=== PATIENT | female | born 1960 | race Caucasian/White ===

== ENCOUNTER 2020-01-19 00:14 | Emergency (ER) | payer OTHER, SELFPAY ==
--- NOTE | ~2020-01-19 | XR_ITS ---
EXAMINATION: XR chest 2V DATE: 01/19/2020 00:51 INDICATION: Chest pain TECHNIQUE: PA and lateral views of the chest were obtained. COMPARISON: None FINDINGS: The lungs are clear with no focal airspace opacities, pulmonary edema, pleural effusion or pneumothor ax. The cardiomediastinal silhouette is normal. Midthoracic dextroscoliosis with moderate spondylosis . IMPRESSION: 1. No acute cardiopulmonary disease. Reviewed, dictated and finalized at location A. L [facility]
[2020-01-19 00:17] VITALS: BP 131/86; PULSE 96; RESP 16; TEMP 36.5; O2SAT 99
--- NOTE | 2020-01-19 00:36 | ED_ITS ---
I attest that this documentation has been prepared under the direction and in the presence of Juan José Ramirez MD. Anil Yates Scribe 01/19/20;00:36 HPI - URI/Sore Throat General Chief Complaint: Upper Respiratory Infection Stated Complaint: lung pain Time Seen by Provider: 01/19/20 00:31 Related Data Allergies Allergy/AdvReac Type Severity Reaction Status Date / Time Penicillins Allergy Unknown Verified 12/22/10 16:33 [facility] Family History Family History (Updated 06/29/16 @ 23:19 by DOCTOR UNKNOWN) Mother Hypertension Sibling Family history of malignant neoplasm of breast in first degree relative Social History Social History Alcohol intake: never Course Vital Signs Vital signs: Vital Signs Temperature 36.5 C 01/19/20 00:17 Pulse Rate 96 01/19/20 00:17 Respiratory Rate 16 01/19/20 00:17 Blood Pressure 131/86 01/19/20 00:17 Pulse Oximetry 99 01/19/20 00:17 Temperature 36.5 C 01/19/20 00:17 Pulse Rate 96 01/19/20 00:17 Respiratory Rate 16 01/19/20 00:17 Blood Pressure 131/86 01/19/20 00:17 Pulse Oximetry 99 01/19/20 00:17
[2020-01-19 00:44] VITALS: BP 129/88; PULSE 85; RESP 18; TEMP 36.8; O2SAT 100
--- NOTE | 2020-01-19 00:44 | ED.BACK ---
HPI - Back Pain/Injury General Chief Complaint: Upper Respiratory Infection Stated Complaint: lung pain Time Seen by Provider: 01/19/20 00:31 Source: patient and RN notes reviewed Mode of arrival: ambulatory Limitations: no limitations History of Present Illness HPI Narrative: Pt is a 59 y/o female who presents to the ED with c/o rt upper back pain starting several weeks ago. She notes that she has a Hx of lung infection, and states that she believes she is currently having an infection in her rt lung. Pt notes that she has been doing a lot more physical labor recently. She states that she was seen at an urgent care facility last week for her symptoms, and states that she was advised to be seen in the ED. She notes that she didn't have time to go to the hospital that night. Pt states that she was later prescribed a course of Augmentin, which she is currently on her third day of. She describes her pain as stabbing, and notes that it feels like her rt lung is hardening. Pt states that her pain also feels similar to a pulled muscle. She reports a cough accompanying her pain, but denies any other symptoms. MD elicited complaint: back pain Onset (ago): week(s) (several) Quality: stabbing Location: right upper back Associated symptoms: other (cough) Treatments prior to arrival: other (Augmentin) Related Data Allergies Allergy/AdvReac Type Severity Reaction Status Date / Time Penicillins Allergy Unknown Verified 12/22/10 16:33 Review of Systems Review of Systems: All systems reviewed & are unremarkable except as noted in HPI and below Respiratory: Respiratory: Reports cough Musculoskeletal: Musculoskeletal: Reports back pain (rt upper back pain) [facility] Past Medical History Medical History Anxiety Depression Migraines Mitral valve prolapse Panic disorder Right arm fracture Surgical History Surgical History No significant past surgical history Family History Family History (Updated 06/29/16 @ 23:19 by DOCTOR UNKNOWN) Mother Hypertension Sibling Family history of malignant neoplasm of breast in first degree relative Social History Social History Smoking packs per day: 1.5 Smoking cigarettes per day: 30.0 Smoking status: Current every day smoker Alcohol intake: never Gender identity (if verbalized by the patient): Female Comments PCP is Dr. Lerner. Course Vital Signs Vital signs: Vital Signs Temperature 36.5 C 01/19/20 00:17 Pulse Rate 96 01/19/20 00:17 Respiratory Rate 16 01/19/20 00:17 Blood Pressure 131/86 01/19/20 00:17 Pulse Oximetry 99 01/19/20 00:17 Temperature 36.8 C 01/19/20 02:45 Pulse Rate 80 01/19/20 02:45 Respiratory Rate 18 01/19/20 02:45 Blood Pressure 154/85 H 01/19/20 02:45 Pulse Oximetry 100 01/19/20 02:45 MDM - Back Pain/Injury Differential Diagnosis Differential diagnosis: Likely thoracic back pain and other (pneumonia) Medical Records Attestation: I reviewed the patient's medical records. Lab Data Attestation: I reviewed the patient's lab results. Imaging Data Attestation: I personally reviewed and interpreted this imaging study as follows: My impression: Negative chest x-ray Discharge Plan Discharge Clinical Impression: Upper back pain Patient Disposition: Home, Self-Care Condition: Stable Instructions: Back Pain (ED) Prescriptions: New cyclobenzaprine 10 mg tablet 10 mg PO TID PRN (Reason: muscle spasm) Qty: 20 RF: 0 Follow-up/Referrals: Errol Lerner MD [Primary Care Provider] - Discharge Date/Time: 01/19/20 02:30
[2020-01-19 01:34] VITALS: O2SAT 100
[2020-01-19 02:45] VITALS: BP 154/85; PULSE 80; RESP 18; TEMP 36.8; O2SAT 100
== END 2020-01-19 02:30 | disposition home or self-care (01) ==
PROVIDERS: Emergency Provider Emergency Medicine; PCP Internal Medicine
DX: M54.9 Dorsalgia, unspecified (principal); F41.9 Anxiety disorder, unspecified; F32.9 Major depressive disorder, single episode, unspecified
CPT/HCPCS: 71046; 99283

== ENCOUNTER 2021-09-06 12:26 | Emergency (ER) | payer OTHER, SELFPAY ==
[2021-09-06 12:35] VITALS: BP 144/90; PULSE 71; RESP 16; TEMP 36; O2SAT 100
--- NOTE | 2021-09-06 14:07 | ED_ITS ---
HPI - URI/Sore Throat General Chief Complaint: Upper Respiratory Infection Stated Complaint: jordy feeling well Time Seen by Provider: 09/06/21 14:03 Source: patient Mode of arrival: ambulatory Limitations: no limitations Related Data Allergies Allergy/AdvReac Type Severity Reaction Status Date / Time Penicillins Allergy Mild Hives Verified 09/06/21 13:15 [facility] Past Medical History Medical History (Updated 09/06/21 @ 14:13 by POORNIMA Root) Anxiety Depression Migraines Mitral valve prolapse Panic disorder Right arm fracture Surgical History Surgical History No significant past surgical history Family History Family History (Updated 06/29/16 @ 23:19 by DOCTOR UNKNOWN) Mother Hypertension Sibling Family history of malignant neoplasm of breast in first degree relative Social History Social History Smoking packs per day: 1.5 Smoking cigarettes per day: 30.0 Smoking status: Current every day smoker Alcohol intake: never Gender identity (if verbalized by the patient): Female Course Vital Signs Vital signs: Vital Signs Temperature 36.0 C L 09/06/21 12:35 Pulse Rate 71 09/06/21 12:35 Respiratory Rate 16 09/06/21 12:35 Blood Pressure 144/90 H 09/06/21 12:35 Pulse Oximetry 100 09/06/21 12:35 Temperature 36.0 C L 09/06/21 12:35 Pulse Rate 71 09/06/21 12:35 Respiratory Rate 16 09/06/21 12:35 Blood Pressure 144/90 H 09/06/21 12:35 Pulse Oximetry 100 09/06/21 12:35 MDM - URI/Sore Throat Lab Data Labs: Lab Results 09/06/21 Range/Units 13:00 POC SARS CoV-2 Ag Negative (Negative) Strep Screen Presumptive Negative *(Reference Range: Negative)* Strep Screen Presumptive Negative *(Reference Range: Negative)* Strep Screen Presumptive Negative *(Reference Range: Negative)* Discharge Plan Discharge Clinical Impression: Sinusitis Patient Disposition: Home, Self-Care Condition: Stable Instructions: Antibiotic Form, Sinusitis (ED) Additional Instructions: Take antibiotics as directed. A list of follow-up care has also been provided. You may take Tylenol or ibuprofen for pain. If you develop chest pain, cough, shortness of breath or fever, please go to the emergency department for further evaluation. Prescriptions: New doxycycline monohydrate 100 mg capsule 100 mg PO BID 5 Days Qty: 10 RF: 0 Follow-up/Referrals: UNKNOWN,DOCTOR [Primary Care Provider] - Time of Disposition: 14:13
--- NOTE | 2021-09-06 14:14 | ED.URI ---
HPI - URI/Sore Throat General Chief Complaint: Upper Respiratory Infection Stated Complaint: jordy feeling well Time Seen by Provider: 09/06/21 14:03 Source: patient Mode of arrival: ambulatory Limitations: no limitations History of Present Illness HPI Narrative: Patient is a 60-year-old female who presents with multiple complaints. Patient reports with sinus type symptoms x 10 days. Patient reports taking amoxicillin of her mother's but possibly developed a rash. Patient reports that she is allergic to penicillin but took the amoxicillin anyway. Patient then reports that she is having many problems, that she has been talking non stop for a week. Patient asking for referrals for PCP and psychiatrist. Related Data Allergies Allergy/AdvReac Type Severity Reaction Status Date / Time Penicillins Allergy Mild Hives Verified 09/06/21 13:15 Review of Systems Review of Systems: CONSTITUTIONAL: Denies fever, chills, or sweats. EYES: Denies visual changes, redness, or discharge. ENT: Denies rhinorrhea, reports congestion, facial pressure and headache CARDIOVASCULAR: Denies chest pain, palpitations, or edema. RESPIRATORY: Denies cough or dyspnea. GASTROINTESTINAL: Denies abdominal pain, nausea, vomiting, or diarrhea. GENITOURINARY: Denies dysuria or hematuria. SKIN: Denies rash or itching. MUSCULOSKELETAL: Denies back pain, joint pain, or myalgia. NEUROLOGIC: Denies headache, numbness, dizziness, or weakness. PSYCHIATRIC: Denies anxiety or depression. [facility] Past Medical History Medical History Anxiety Depression Migraines Mitral valve prolapse Panic disorder Right arm fracture Surgical History Surgical History No significant past surgical history Family History Family History Mother Hypertension Sibling Family history of malignant neoplasm of breast in first degree relative Social History Social History Smoking packs per day: 1.5 Smoking cigarettes per day: 30.0 Smoking status: Current every day smoker Alcohol intake: never Gender identity (if verbalized by the patient): Female Comments At the time of signature, I have reviewed and agree with nursing past medical, surgical, social, and family history unless otherwise noted. Please see nursing chart for further information. There is no relevant family history pertinent to the presenting complaint. Exam Narrative: GENERAL: Well-appearing, well-nourished, and in no acute distress. HEAD: Normocephalic, atraumatic. EYES: EOMI. No redness or drainage. Conjunctiva are normal. ENT: Mucous membranes pink and moist. Nares clear. No rhinorrhea. TMs normal bilaterally. Throat normal. Uvula midline. Maxillary and frontal sinus tenderness with palpation. Multiple dental caries, fractures and missing teeth. NECK: AROM. Supple. No lymphadenopathy. CHEST: No respiratory distress. HEART: Regular rate and rhythm. EXTREMITIES: Normal range of motion. No edema. SKIN: Warm, dry, no rash. NEURO: No focal deficits. Alert and oriented x3. Gait steady. PSYCH: Normal affect. No signs of depression or anxiety. Course Vital Signs Vital signs: Vital Signs Temperature 36.0 C L 09/06/21 12:35 Pulse Rate 71 09/06/21 12:35 Respiratory Rate 16 09/06/21 12:35 Blood Pressure 144/90 H 09/06/21 12:35 Pulse Oximetry 100 09/06/21 12:35 Temperature 36.0 C L 09/06/21 12:35 Pulse Rate 71 09/06/21 12:35 Respiratory Rate 16 09/06/21 12:35 Blood Pressure 144/90 H 09/06/21 12:35 Pulse Oximetry 100 09/06/21 12:35 Reviewed MDM - URI/Sore Throat MDM Narrative Medical decision making narrative: Patient to be started on doxycycline at this time for sinusitis. Discussed with patient referral for PCP, dentist and for psychiatrist. During
== END 2021-09-06 14:25 | disposition home or self-care (01) ==
PROVIDERS: Emergency Medicine; Emergency Provider Nurse Practitioner
DX: J32.0 Chronic maxillary sinusitis (principal); I34.1 Nonrheumatic mitral (valve) prolapse; F17.210 Nicotine dependence, cigarettes, uncomplicated; Z20.822 Contact with and (suspected) exposure to COVID-19
CPT/HCPCS: 87081; 87426; 87880; 99213; C9803; G0463

== ENCOUNTER 2024-02-21 18:17 | Emergency (ER) | payer OTHER, SELFPAY ==
[2024-02-21 18:43] VITALS: BP 132/78; PULSE 93; RESP 16; TEMP 37.3; O2SAT 99
--- NOTE | 2024-02-21 19:22 | ED.FEMALEGU ---
HPI - Female Genitourinary General Chief complaint: Urogenital-Female Stated complaint: urinary symptoms Time Seen by Provider: 02/21/24 18:52 Source: patient and RN notes reviewed Mode of arrival: ambulatory Limitations: no limitations History of Present Illness HPI Narrative: Patient presents today complaining of dysuria, hematuria, and not fully emptying her bladder x2 days. Denies frequency or abdominal pain. She has tried some azo with little relief, but was not taking the proper dosage. Related Data Allergies Allergy/AdvReac Type Severity Reaction Status Date / Time Penicillins Allergy Mild Hives Verified 02/21/24 18:25 Review of Systems Review of Systems: CONSTITUTIONAL: Denies body aches, fever, chills, or sweats. EYES: Denies visual changes, redness, or discharge. ENT: Denies rhinorrhea, congestion, sore throat, or otalgia. CARDIOVASCULAR: Denies chest pain, palpitations, or edema. RESPIRATORY: Denies cough or dyspnea. GASTROINTESTINAL: Denies abdominal pain, nausea, vomiting, or diarrhea. GENITOURINARY: + dysuria, hematuria SKIN: Denies rash, itching, or wounds. MUSCULOSKELETAL: Denies back pain, joint pain, or myalgia. NEUROLOGIC: Denies headache, numbness, tingling, or weakness. PSYCH: Denies depression or anxiety. [facility] Past Medical History Medical History Anxiety Depression Migraines Mitral valve prolapse Panic disorder Right arm fracture Surgical History Surgical History No significant past surgical history Family History Family History Mother Hypertension Sibling Family history of malignant neoplasm of breast in first degree relative Social History Social History Smoking packs per day: 1.5 Smoking cigarettes per day: 30.0 Smoking status: Current every day smoker Alcohol intake: never Gender identity (if verbalized by the patient): Female Comments At time of signature, I have reviewed and agree with nursing past medical, surgical, social and family history unless otherwise noted. Please see nursing chart for further information. There is no relevant family history pertinent to the presenting complaint Exam Narrative: GENERAL: Well-appearing, well-nourished, and in no acute distress. HEAD: Normocephalic, atraumatic. EYES: EOMI. No redness or drainage. Conjunctivae normal. ENT: Mucous membranes pink and moist. NECK: Normal AROM. Supple. No lymphadenopathy. CHEST: No respiratory distress. Clear to auscultation. HEART: Regular rate and rhythm. No murmur appreciated. ABDOMEN: Soft, nontender, nondistended, normal active bowel sounds. MUSCULOSKELETAL: No bony tenderness. EXTREMITIES: Normal range of motion. No edema. SKIN: Warm, dry, no rash. Capillary refill normal. Normal skin turgor. NEURO: No focal deficits. Alert and oriented x3. Gait steady. PSYCH: Flight of ideas, but redirectable Course Course Level of Care: Express Care Visit Vital Signs Vital signs: Vital Signs Temperature 99.2 F 02/21/24 18:43 Pulse Rate 93 02/21/24 18:43 Respiratory Rate 16 02/21/24 18:43 Blood Pressure 132/78 02/21/24 18:43 Pulse Oximetry 99 02/21/24 18:43 Oxygen Delivery Room Air 02/21/24 18:43 Temperature 99.2 F 02/21/24 18:43 Pulse Rate 93 02/21/24 18:43 Respiratory Rate 16 02/21/24 18:43 Blood Pressure 132/78 02/21/24 18:43 Pulse Oximetry 99 02/21/24 18:43 Oxygen Delivery Room Air 02/21/24 18:43 Reviewed MDM - Female Genitourinary MDM Narrative Medical decision making narrative: Urinalysis is consistent with UTI. Prescription for Keflex sent to pharmacy. Anticipatory guidance given. Patient requesting information for psychiatry. Referrals given. Differential Diagnosis Differe
== END 2024-02-21 19:23 | disposition home or self-care (01) ==
PROVIDERS: Emergency Provider Nurse Practitioner
DX: N39.0 Urinary tract infection, site not specified (principal); B96.20 Unspecified Escherichia coli [E. coli] as the cause of diseases classified elsewhere; F17.210 Nicotine dependence, cigarettes, uncomplicated; I34.1 Nonrheumatic mitral (valve) prolapse
CPT/HCPCS: 81003; 87077; 87086; 87088; 87186; 99213; G0463

== ENCOUNTER 2025-09-02 18:10 | Emergency (ER) | payer OTHER, SELFPAY ==
[2025-09-02 18:15] VITALS: BP 148/97; PULSE 109; RESP 16; TEMP 36.5; O2SAT 96
--- NOTE | 2025-09-02 18:18 | ED_ITS ---
HPI - Female Genitourinary General Chief complaint: Urogenital-Female Stated complaint: urinary irritation Patient presents to the [facility] with complaints of burning with urination, back pain and bladder pressure that began about 5 days ago. Patient reports symptoms worsened today the patient did take azo [id number] urinar y tract pain relief with some relief of the burning. No history of frequent urinary tract infections. Denies fever, chills, body aches, significant abdominal pain blood nausea, diarrhea. Related Data Home Medications ?Medication ?Instructions ?Recorded ?Confirmed ?Last Taken ?Type omeprazole 20 mg capsule,delayed 20 mg PO DAILY Unknown History release Allergies Allergy/AdvReac Type Severity Reaction Status Date / Time Penicillins Allergy Mild Hives Verified 09/02/25 18:37 Review of Systems Constitutional: Constitutional: Reports as per HPI, Denies chills and Denies fatigue Eyes: Eyes: Reports no additional eye complaints ENT: Reports system reviewed and no additional complaints, except as documented Cardiovascular: Cardiovascular: Reports no additional cardiovascular complaints Respiratory: Respiratory: Reports no additional respiratory complaints Gastrointestinal: Gastrointestinal: Reports no additional gastrointestinal c omplaints Genitourinary: Genitourinary: Reports as per HPI, Denies hematuria, Reports nocturia, Reports dysuria, Denies pelvic pain, Denies flank pain, Denies urinary incontinence and Denies vaginal discharge Musculoskeletal: Musculoskeletal: Reports as per HPI and Denies back pain Integumentary/Breasts: Skin/Breast: Reports system reviewed and no additional complaints, except as docu Neurologic: Reports system reviewed and no additional complaints, except as documented Psychiatric: Psychiatric: Reports no additional psychiatric complaints Endocrine: Endocrine: Reports no additional endocrine complaints Hematologic/Lymphatic: Hematologic/Lymphatic: Reports no additional hematologic/lymphatic complaints Allergic/Immunologic: Allergic/Immunologic: Reports no additional allergic/immunologic complaints [facility] Past Medical History Medical History (Updated 09/02/25 @ 18:44 by ARPIT LozanoC) Anxiety Depression Panic disorder Right arm fracture Mitral valve prolapse Migraines Surgical History Surgical History No significant past surgical history Family History Family History Mother Hypertension Sibling Family history of malignant neoplasm of breast in first degree relative Social History Social History Smoking packs per day: 1.5 Smoking cigarettes per day: 30.0 Smoking status: Current every day smoker Alcohol intake: never Gender identity (if verbalized by the patient): Female Exam Const: General: healthy appearing and no acute distress Nutritional Appearance: well nourished Orientation/consciousness: patient oriented x3 Limitations: no limitations Resp: Effort & Inspection: normal respiratory effort Auscultation: clear to auscultation bilaterally Cardio: Rate: regular rate Rhythm: regular rhythm : General: Yes bladder normal to palpation and Yes no CVA tenderness Back/Spine/Pelvis: Back: no CVA tenderness Skin: General skin exam: normal color Rashes: no rashes Wounds: no wounds Neuro: General: patient oriented x3 Speech: normal speech Gait exam (Neuro): Normal gait present Psych: Appearance: grossly normal Mental Status: mental status grossly normal Affect: normal affect Attitude: cooperative Course Course Level of Care: Express Care Visit MDM - Female Genitourinary MDM Narrative Medical decision making narrative: The patient was evaluated by myself in the express care. History is obtained from patient who is an independent historian and physical exam was performed. Available medical records were reviewed at this time. Exam findings show no acute concerns or changes; patient is non-toxic appearing and is in no distress. Patient is appropriate for outpatient treatment and follow-up. I have evaluated and discussed social determinants of health with the patient that could potentially impact subsequent diagnosis and treatment plans. Differential diagnosis and treatment plan were discussed with the patient. Patient agrees with discussion and after shared medical decision making agrees with plan of care. All questions were answered to the patient's satisfaction. Differential Diagnosis Differential diagnosis: Likely urinary tract infection, trichomoniasis, ovarian cyst, vaginitis and cystitis Medical Records Attestation: I reviewed the patient's medical records. Lab Data Attestation: I reviewed the patient's lab results. Discharge Plan Discharge Clinical Impression: Cystitis Patient Disposition: Home Condition: Stable Instructions: Antibiotic Form, Urinary Tract Infection in Women (ED) Additional Instructions: We will send a urine culture off to the lab; if the culture identifies an organism that the prescribed antibiotic will not treat, you will receive a phone call from an urgent care staff member and an appropriate antibiotic will be prescribed. -Your symptoms should begin to improve within a day of starting antibiotics. But you should finish all the antibiotic pills you get. Otherwise your infection austyn ht come back. -Also recommend: drink more fluid. It might help flush out germs, and it does no harm -Tylenol/ibuprofen as needed for pain -Follow-up with your primary care provider for urine recheck OR if your symptoms persist, change or worsen significantly before you can contact your personal physician then please, without delay, go to the emergency department for further evaluation. Patient Language: Filipino Prescriptions: New nitrofurantoin monohyd/m-cryst [Macrobid] 100 mg capsule 100 mg PO Q12H 7 Days Qty: 14 0RF Rx Instructions: must administer with a meal/food No Action omeprazole 20 mg capsule,delayed release(DR/EC) 20 mg PO DAILY Follow-up/Referrals: PHYSICIAN,BUSINESS OPERATIONS DIRECTOR [Primary Care Provider, Internal Medicine] Time of Disposition: 18:44
[2025-09-02 18:29] LABS: EDUAAPPEAR Cloudy; EDUABILI 1+ (Negative); EDUABLOOD 2+ (Negative); EDUACOLOR1 Amber; EDUAGLUCOSE Negative (Negative); EDUAKETONE 2+ (Negative); EDUALEUKO 1+ (Negative); EDUANITRATE Positive (Negative); EDUAPH 5.5; EDUAPROTEIN 3+ (Negative); EDUASPGRAVITY 1.025; EDUAUROBILI 1.0
== END 2025-09-02 18:45 | disposition home or self-care (01) ==
PROVIDERS: Emergency Provider Nurse Practitioner Family
DX: N30.90 Cystitis, unspecified without hematuria (principal); F17.210 Nicotine dependence, cigarettes, uncomplicated
CPT/HCPCS: 81003; 87077; 87086; 87186; 99213; G0463